=== PATIENT | female | born 1995 ===

== ENCOUNTER 2022-03-17 13:15 | Inpatient (IN) | payer OTHER ==
[~2022-03-17] VITALS: Ht 160 cm; Wt 90.3 kg
[2022-03-29] MEDS ORDERED: PRENATA CHEWAB1 EACH PO (09:11)
== END 2022-03-31 15:07 | disposition home or self-care (01) | DRG 807 ==
LOC: OB/GYN 03-29 04:38 → LDR 03-29 04:38 → OB/GYN 03-29 20:08
PROVIDERS: ADMIT Specialist; ATTEND Specialist
PROC: 10E0XZZ Delivery of Products of Conception, External Approach (ICD-10-PCS; principal; 2022-03-29)
PROC: 4A1HXCZ Monitoring of Products of Conception, Cardiac Rate, External Approach (ICD-10-PCS; 2022-03-29)
PROC: 0W8NXZZ Division of Female Perineum, External Approach (ICD-10-PCS; 2022-03-29)
DX: O99.824 Streptococcus B carrier state complicating childbirth (principal); Z37.0 Single live birth; Z3A.39 39 weeks gestation of pregnancy; Z20.822 Contact with and (suspected) exposure to COVID-19